=== PATIENT | male | born 1985 | race Caucasian/White ===

== ENCOUNTER 2016-12-06 17:59 | Emergency (ER) | payer OTHER ==
[~2016-12-06] VITALS: Ht 167.6 cm; Wt 143.8 kg
[~2016-12-06 17:59] MED LIST: BENZTROPINE ME0.5 MG PO; HYDROCODONE-AP1 EAC6 PO; IBUPROFEN 800800 MG PO; INDOMETHACIN 2525 MG PO; INDOMETHACIN 5050 MG PO; LISINOPRIL/HYDROCHLO; NAPROSYN500 MG PO; NOHOMEMEDICATIONS; NORCO 5-325 TA1 EACH PO; PREDNISONE 10 M10 MG PO; PROMETHAZINE-C120 ML PO; PROVENTIL HFA6.7 G1 INH; SEROQUEL 25 MG25 M1 PO; TRAZODONE HCL100 MG PO; ZOLOFT50 MG PO; ZPAK PO
[2016-12-06 19:42] LABS: HEMATOCRIT 43.7 % (42.0-52.0); HEMOGLOBIN 14.7 gm/dL (14.0-18.0); MCH 29.5 pg (26.0-34.0); MCHC 33.7 g/dL (28.0-37.0); MCV 87.6 fL (80.0-100.0); PLATELET COUNT 182 thou/uL (150-400); RBC 4.99 mil/uL (4.50-6.00); RDW 14.2 % (10.5-14.5); WBC 26.1 thou/uL (4.0-11.0)
[2016-12-06 19:43] LABS: URINE BILIRUBIN 1+ (Negative); URINE BLOOD 1+ (Negative); URINE COLOR YELLOW; URINE GLUCOSE-RANDOM* NEGATIVE (Negative); URINE KETONES TRACE (Negative); URINE NITRITE NEGATIVE (Negative); URINE PROTEIN (DIPSTICK) 1+ (Negative); URINE SPECIFIC GRAVITY 1.015 (1.003-1.035)
[2016-12-06 19:45] LABS: MANUAL DIFF YES
[2016-12-06 19:46] LABS: ICTOTEST (BILI CONFIRMATORY) Negative (Negative)
[2016-12-06 19:49] LABS: CREATININE 1.1 mg/dL (0.7-1.3)
[2016-12-06 19:54] LABS: ALBUMIN 3.8 g/dL (3.4-5.0); TOTAL BILIRUBIN 0.7 mg/dL (<0.1-1.0); TOTAL PROTEIN 7.5 g/dL (6.4-8.2)
[2016-12-06 20:01] LABS: BACTERIA 1-9 Few /HPF (None Seen); CASTS None Seen /LPF (None Seen); CRYSTALS None Seen /LPF (None Seen); SQUAMOUS 0-3 Few /LPF (0-3); URINE WBC 6-15 Few /HPF (0-5)
[2016-12-06 20:02] LABS: URINE RBC 0-2 Rare /HPF (0-2)
[2016-12-06 20:15] LABS: ABSOLUTE NEUTROPHILS 24.3 thou/uL (1.4-8.2); HYPOCHROMASIA SLIGHT; TOTAL CELL COUNT 100
[2016-12-06] MEDS ORDERED: INDOMETHACIN 2525 MG PO (21:28)
[2016-12-06] MEDS ORDERED: KEFLEX500 MG PO (21:28)
[2016-12-06] MEDS ORDERED: NORCO 5-325 TA1 EACH PO (21:28)
[2016-12-06 21:50] VITALS: BP 130/59
[2016-12-07] MEDS ORDERED: DESYREL300 MG PO (22:33)
== END 2016-12-06 21:54 | disposition home or self-care (01) ==
LOC: ER 17:59
PROVIDERS: Nurse Practitioner Family
DX: N12 Tubulo-interstitial nephritis, not specified as acute or chronic (principal); J40 Bronchitis, not specified as acute or chronic; D72.828 Other elevated white blood cell count; I10 Essential (primary) hypertension; Z96.642 Presence of left artificial hip joint; F17.210 Nicotine dependence, cigarettes, uncomplicated

== ENCOUNTER 2016-12-07 17:56 | Inpatient (IN) | payer OTHER ==
[~2016-12-07] VITALS: Ht 167.6 cm; Wt 143.8 kg
--- NOTE | ~2016-12-07 | 2DMMODE ---
[place] [address] [facility] [place] [address] 2 D/M-MODE ECHOCARDIOGRAM Name: BERNARDINO JACOBSEN Room #: 420-P [facility] IN .R.#: [id number] Admission: 12/07/16 Attend Phys: Ariela Yanez Discharge: Date of : 87 Date of Service: 12/08/16 1536 Report #: [id number] THIS REPORT FOR: //name// APPROVED REPORT Study performed: 12/08/2016 12:04:58 EXAM: Comprehensive 2D, Doppler, and color-flow Echocardiogram Patient Location: Bedside Room #: 420 Blood Pressure: 108/62 mmHg HR: 88 bpm Rhythm: NSR Other Information Study Quality: Adequate Technically limited study due to body habitus. Indications fever, IV drug abuse, cough, SOA. Hx HTN, HLP, tobacco abuse, morbid obesity. 2D Dimensions RVDd: 41.97 mm LVEF(%): 69.33 (>50%) IVSd: 11.16 (7-11mm) LVOT Diam: 22.01 (18-24mm) LVDd: 51.94 mm PWd: 10.64 (7-11mm) Ascending Ao: 31.58 (22-36mm) LVDs: 31.56 (25-40mm) Aortic Root: 35.25 mm Ashley's LVEF: 69.33 % Volumes Left Atrial Volume (Systole) Single Plane 4CH: 62.40 mL Single Plane 2CH: 58.41 mL LA ESV Index: 29.00 mL/m2 Aortic Valve AoV Peak Caio.: 1.89 m/s AO Peak Gr.: 14.32 mmHg LVOT Max P.33 mmHg LVOT Max V: 1.35 m/s ADELINA Vmax: 2.72 cm2 [facility] [place] [address] 2 D/M-MODE ECHOCARDIOGRAM Name: BERNARDINO JACOBSEN Room #: 420-[facility] IN ..#: [id number] Admission: 12/07/16 Attend Phys: Ariela Yanez Discharge: Date of : 87 Date of Service: 12/08/16 1536 Report #: [id number] Mitral Valve E/A Ratio: 1.2 MV Decel. Time: 234.53 ms MV E Max Caio.: 1.12 m/s MV A Caio.: 0.90 m/s MV PHT: 68.01 ms IVRT: 48.44 ms Pulmonary Valve PV Peak Caio.: 1.36 m/s PV Peak Gr.: 7.42 mmHg Pulmonary Vein P Vein S: 92.6 m/s P Vein A: 30.11 m/s P Vein D: 53.0 m/s P Vein A Dur.: 69.2 msec Tricuspid Valve TR Peak Caio.: 2.49 m/s RAP Estimate: 5.00 mmHg TR Peak Gr.: 24.82 mmHg RVSP: 30.00 mmHg Left Ventricle The left ventricle is normal size. There is normal LV segmental wall motion. There is normal left ventricular wall thickness. The left ventricular systolic function is normal. The left ventricular ejection fraction is within the normal range. LVEF is 60%. The left ventricular diastolic function is normal. Right Ventricle The right ventricle is normal size. The right ventricular systolic function is normal. Atria The left atrium size is normal. The right atrium size is normal. Aortic Valve The aortic valve is normal in structure. No aortic regurgitation is present. There is no aortic valvular stenosis. Mitral Valve The mitral valve is normal in structure. Trace mitral regurgitation. No evidence of mitral valve stenosis. Tricuspid Valve The tricuspid valve is normal in structure. Trace tricuspid regurgitation. [facility] [address] [place] [address] 2 D/M-MODE ECHOCARDIOGRAM Name: BERNARDINO JACOBSEN Room #: 420-P [facility] IN [facility]#: [id number] Admission: 12/07/16 Attend Phys: Ariela Yanez Discharge: Date of : 87 Date of Service: 12/08/16 1536 Report #: [id number] Pulmonic Valve Pulmonic valve is not well visualized. Great Vessels The aortic root is normal in size. IVC is normal in size and collapses >50% with inspiration. Pericardium There is no pericardial effusion. <Conclusion> The left ventricle is normal size. LVEF is 60%. The aortic valve is normal in structure. The mitral valve is normal in structure. Trace mitral regurgitation. The tricuspid valve is normal in structure. Trace tricuspid regurgitation. <ELECTRONICALLY SIGNED> By: Lamonte Garcia MD 12/08/16 1536 1536 1536 Lamonte Garcia MD /INF
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
[~2016-12-07 17:56] MED LIST changes: +KEFLEX500 MG PO
[2016-12-07 18:03] VITALS: BP 158/98
[2016-12-07 19:15] LABS: URINE BILIRUBIN NEGATIVE (Negative); URINE BLOOD 2+ (Negative); URINE COLOR YELLOW; URINE GLUCOSE-RANDOM* NEGATIVE (Negative); URINE KETONES NEGATIVE (Negative); URINE NITRITE NEGATIVE (Negative); URINE PROTEIN (DIPSTICK) 2+ (Negative); URINE SPECIFIC GRAVITY >= 1.030 (1.003-1.035)
[2016-12-07 19:21] LABS: BACTERIA None Seen /HPF (None Seen); CASTS None Seen /LPF (None Seen); CRYSTALS None Seen /LPF (None Seen); SQUAMOUS None Seen /LPF (0-3); URINE RBC 3-10 Few /HPF (0-2); URINE WBC 0-5 Rare /HPF (0-5)
[2016-12-07 20:01] LABS: HEMOGLOBIN 14.4 gm/dL (14.0-18.0); MCH 29.7 pg (26.0-34.0); MCHC 33.3 g/dL (28.0-37.0); MCV 89.2 fL (80.0-100.0); PLATELET COUNT 221 thou/uL (150-400); RBC 4.82 mil/uL (4.50-6.00); RDW 14.1 % (10.5-14.5); WBC 26.8 thou/uL (4.0-11.0)
[2016-12-07 20:02] LABS: MANUAL DIFF YES
[2016-12-07 20:09] LABS: CALCIUM 8.9 mg/dL (8.5-10.1); CREATININE 0.9 mg/dL (0.7-1.3); POTASSIUM 4.2 mmol/L (3.5-5.1)
[2016-12-07 20:15] LABS: ALBUMIN 3.6 g/dL (3.4-5.0); TOTAL BILIRUBIN 0.2 mg/dL (<0.1-1.0); TOTAL PROTEIN 7.4 g/dL (6.4-8.2)
[2016-12-07 20:21] LABS: ABSOLUTE NEUTROPHILS 22.8 thou/uL (1.4-8.2); TOTAL CELL COUNT 100
[2016-12-07] MEDS ORDERED: DESYREL300 MG PO (22:33)
[2016-12-08 04:00] VITALS: BP 124/58
[2016-12-08 06:22] LABS: ABSOLUTE NEUTROPHILS 13.1 thou/uL (1.4-8.2); BASOPHILS 0.3 % (0.0-2.0); EOSINOPHILS 0.6 % (0.0-3.0); HEMATOCRIT 38.4 % (42.0-52.0); HEMOGLOBIN 12.9 gm/dL (14.0-18.0); LYMPHOCYTES 17.3 % (24.0-44.0); MCHC 33.7 g/dL (28.0-37.0); MONOCYTES 8.9 % (1.0-8.0); PLATELET COUNT 193 thou/uL (150-400); POLYS 72.9 % (36.0-66.0); RBC 4.32 mil/uL (4.50-6.00); RDW 13.9 % (10.5-14.5)
[2016-12-08 06:25] LABS: MANUAL DIFF NO
[2016-12-08 06:31] LABS: CALCIUM 8.2 mg/dL (8.5-10.1); CREATININE 0.9 mg/dL (0.7-1.3); POTASSIUM 4.2 mmol/L (3.5-5.1)
[2016-12-08 07:30] VITALS: BP 108/62
[2016-12-08 15:48] VITALS: BP 133/65
[2016-12-08 17:12] LABS: HIV ANTIBODY Non Reactive (Non Reactive)
[2016-12-08 18:07] LABS: HEPATITIS C VIRUS AB <0.1 (0.0-0.9)
[2016-12-08 20:00] VITALS: BP 169/91
[2016-12-09 04:00] VITALS: BP 107/42
[2016-12-09 04:48] LABS: ABSOLUTE NEUTROPHILS 8.5 thou/uL (1.4-8.2); BASOPHILS 0.5 % (0.0-2.0); HEMATOCRIT 37.6 % (42.0-52.0); HEMOGLOBIN 12.8 gm/dL (14.0-18.0); LYMPHOCYTES 26.1 % (24.0-44.0); MCH 30.1 pg (26.0-34.0); MCV 88.6 fL (80.0-100.0); MONOCYTES 7.3 % (1.0-8.0); PLATELET COUNT 192 thou/uL (150-400); POLYS 64.1 % (36.0-66.0); RBC 4.25 mil/uL (4.50-6.00); RDW 14.4 % (10.5-14.5); WBC 13.2 thou/uL (4.0-11.0)
[2016-12-09 04:54] LABS: MANUAL DIFF NO
[2016-12-09 07:21] VITALS: BP 138/78
[2016-12-09 15:56] VITALS: BP 156/84
[2016-12-09 20:00] VITALS: BP 152/92
[2016-12-10 04:15] LABS: ABSOLUTE NEUTROPHILS 8.8 thou/uL (1.4-8.2); BASOPHILS 0.4 % (0.0-2.0); EOSINOPHILS 3.3 % (0.0-3.0); HEMATOCRIT 39.2 % (42.0-52.0); HEMOGLOBIN 13.3 gm/dL (14.0-18.0); LYMPHOCYTES 22.9 % (24.0-44.0); MCH 29.9 pg (26.0-34.0); MCHC 33.9 g/dL (28.0-37.0); MCV 88.3 fL (80.0-100.0); MONOCYTES 8.1 % (1.0-8.0); PLATELET COUNT 205 thou/uL (150-400); POLYS 65.3 % (36.0-66.0); RBC 4.44 mil/uL (4.50-6.00); RDW 14.3 % (10.5-14.5); WBC 13.4 thou/uL (4.0-11.0)
[2016-12-10 04:30] VITALS: BP 146/77
[2016-12-10 04:31] LABS: ALBUMIN 2.9 g/dL (3.4-5.0); CALCIUM 8.7 mg/dL (8.5-10.1); CREATININE 0.9 mg/dL (0.7-1.3); POTASSIUM 3.9 mmol/L (3.5-5.1); TOTAL BILIRUBIN 0.2 mg/dL (<0.1-1.0); TOTAL PROTEIN 6.4 g/dL (6.4-8.2)
[2016-12-10 04:56] LABS: MANUAL DIFF NO
[2016-12-10 07:28] VITALS: BP 153/83
[2016-12-10] MEDS ORDERED: LEVAQUIN 500 M500 M2 PO (10:24)
[2016-12-10] MEDS ORDERED: HYDROCODONE-AP1 EAC6 PO (10:24)
[2016-12-10 12:07] VITALS: BP 153/83
== END 2016-12-10 13:00 | disposition home or self-care (01) | DRG 690 ==
LOC: ER 17:56 → EROBS 19:50 → 4E 19:50
PROVIDERS: Hospitalist; Nurse Practitioner Acute Care; Nurse Practitioner Family
DX: N12 Tubulo-interstitial nephritis, not specified as acute or chronic (principal); J40 Bronchitis, not specified as acute or chronic; D72.829 Elevated white blood cell count, unspecified; R00.0 Tachycardia, unspecified; I10 Essential (primary) hypertension; F20.9 Schizophrenia, unspecified; F31.9 Bipolar disorder, unspecified; M54.9 Dorsalgia, unspecified; K59.00 Constipation, unspecified; M10.9 Gout, unspecified; F17.210 Nicotine dependence, cigarettes, uncomplicated; F12.90 Cannabis use, unspecified, uncomplicated; G47.00 Insomnia, unspecified; E78.00 Pure hypercholesterolemia, unspecified; F19.10 Other psychoactive substance abuse, uncomplicated; Z96.642 Presence of left artificial hip joint; Z87.81 Personal history of (healed) traumatic fracture; Z87.828 Personal history of other (healed) physical injury and trauma; Z79.899 Other long term (current) drug therapy; Z56.0 Unemployment, unspecified; Z82.5 Family history of asthma and other chronic lower respiratory diseases; Z71.6 Tobacco abuse counseling
CPT/HCPCS: 10183

== ENCOUNTER 2017-03-19 00:01 | Emergency (ER) | payer OTHER ==
[~2017-03-19] VITALS: Ht 165.1 cm; Wt 145.2 kg
[~2017-03-19 00:01] MED LIST changes: +DESYREL300 MG PO; +LEVAQUIN 500 M500 M2 PO
[2017-03-19] MEDS ORDERED: PROZAC10 MG PO (00:27)
[2017-03-19] MEDS ORDERED: UNKNOWN MED (00:27)
[2017-03-19] MEDS ORDERED: NORCO 5-325 TA1 EACH PO (02:00)
== END 2017-03-19 02:22 | disposition home or self-care (01) ==
LOC: ER 00:01
DX: S46.912A Strain of unspecified muscle, fascia and tendon at shoulder and upper arm level, left arm, initial encounter (principal); I10 Essential (primary) hypertension; E78.00 Pure hypercholesterolemia, unspecified; F17.210 Nicotine dependence, cigarettes, uncomplicated; Z96.642 Presence of left artificial hip joint; W18.39XA Other fall on same level, initial encounter; Y93.89 Activity, other specified; Y92.89 Other specified places as the place of occurrence of the external cause; Y99.8 Other external cause status

== ENCOUNTER 2017-04-25 16:17 | Emergency (ER) | payer OTHER ==
[~2017-04-25] VITALS: Ht 165.1 cm; Wt 149.7 kg
[~2017-04-25 16:17] MED LIST changes: +PROZAC10 MG PO; +UNKNOWN MED
[2017-04-25] MEDS ORDERED: VENTOLIN HFA 1818 GM INH (17:26)
[2017-04-25] MEDS ORDERED: PREDNISONE 20 M20 MG PO (17:28)
== END 2017-04-25 18:05 | disposition home or self-care (01) ==
LOC: ER 16:17
DX: J06.9 Acute upper respiratory infection, unspecified (principal); J98.01 Acute bronchospasm; Z72.0 Tobacco use; I10 Essential (primary) hypertension; E78.00 Pure hypercholesterolemia, unspecified; Z96.642 Presence of left artificial hip joint

== ENCOUNTER 2017-08-17 06:36 | Emergency (ER) | payer OTHER ==
[~2017-08-17] VITALS: Ht 172.7 cm; Wt 149.7 kg
[~2017-08-17 06:36] MED LIST changes: +FLEXERIL PO; +IBUPROFEN 800800 M1; +PREDNISONE 20 M20 MG PO; +ROBAXIN500 MG PO; +TRAMADOL 50 MG50 MG PO; +VENTOLIN HFA 1818 GM INH
[2017-08-17 07:29] LABS: ABSOLUTE NEUTROPHILS 5.9 thou/uL (1.4-8.2); EOSINOPHILS 2.9 % (0.0-3.0); HEMATOCRIT 43.9 % (42.0-52.0); HEMOGLOBIN 14.8 gm/dL (14.0-18.0); LYMPHOCYTES 21.9 % (24.0-44.0); MCH 29.4 pg (26.0-34.0); MCHC 33.6 g/dL (28.0-37.0); MCV 87.3 fL (80.0-100.0); MONOCYTES 8.7 % (1.0-8.0); PLATELET COUNT 219 thou/uL (150-400); POLYS 65.5 % (36.0-66.0); RBC 5.03 mil/uL (4.50-6.00); RDW 13.6 % (10.5-14.5)
[2017-08-17 07:36] LABS: CALCIUM 9.3 mg/dL (8.5-10.1); CREATININE 1.1 mg/dL (0.7-1.3)
[2017-08-17 11:05] LABS: URINE BILIRUBIN NEGATIVE (Negative); URINE BLOOD NEGATIVE (Negative); URINE CLARITY CLEAR; URINE COLOR YELLOW; URINE GLUCOSE-RANDOM* NEGATIVE (Negative); URINE KETONES NEGATIVE (Negative); URINE LEUKOCYTES-REFLEX NEGATIVE (Negative); URINE NITRITE-REFLEX NEGATIVE (Negative); URINE PROTEIN (DIPSTICK) NEGATIVE (Negative); URINE UROBILINOGEN 0.2 E.U./dl (0.2-1.0)
[2017-08-17] MEDS ORDERED: MIRALAX17 GM PO (11:40)
[2017-08-17] MEDS ORDERED: HYDROCORTISONE30 G9 RECTAL (11:40)
[2017-08-17] MEDS ORDERED: NORCO 7.5-3251 EACH PO (11:40)
[2017-08-17] MEDS ORDERED: SENNA-DOCUSATE1 EACH PO (11:40)
[2017-08-17] MEDS ORDERED: FLEXERIL PO (12:20)
[2017-08-17 12:35] VITALS: BP 131/76
== END 2017-08-17 12:36 | disposition home or self-care (01) ==
LOC: ER 06:36
PROVIDERS: Emergency Medicine
DX: K64.5 Perianal venous thrombosis (principal); M10.9 Gout, unspecified; I10 Essential (primary) hypertension; E78.00 Pure hypercholesterolemia, unspecified; F17.210 Nicotine dependence, cigarettes, uncomplicated; Z96.642 Presence of left artificial hip joint

== ENCOUNTER 2017-09-19 09:53 | Emergency (ER) | payer OTHER ==
[~2017-09-19] VITALS: Ht 165.1 cm; Wt 104.3 kg
[~2017-09-19 09:53] MED LIST changes: +HYDROCORTISONE30 G9 RECTAL; +MIRALAX17 GM PO; +NORCO 7.5-3251 EACH PO; +SENNA-DOCUSATE1 EACH PO
[2017-09-19 10:20] LABS: URINE BILIRUBIN NEGATIVE (Negative); URINE BLOOD TRACE (Negative); URINE CLARITY OTHER; URINE COLOR YELLOW; URINE GLUCOSE-RANDOM* NEGATIVE (Negative); URINE KETONES NEGATIVE (Negative); URINE LEUKOCYTES NEGATIVE (Negative); URINE NITRITE NEGATIVE (Negative); URINE PROTEIN (DIPSTICK) 2+ (Negative); URINE SPECIFIC GRAVITY >= 1.030 (1.005-1.035); URINE UROBILINOGEN 0.2 E.U./dl (0.2-1.0)
[2017-09-19 10:56] LABS: SQUAMOUS 0-3 Few /LPF (0-3)
[2017-09-19 10:57] LABS: CASTS None Seen /LPF (None Seen); CRYSTALS None Seen /LPF (None Seen)
[2017-09-19 10:59] LABS: URINE WBC 6-15 Few /HPF (0-5)
[2017-09-19 11:00] LABS: URINE RBC 3-10 Few /HPF (0-2)
[2017-09-19 11:09] LABS: BACTERIA 1-9 Few /HPF (None Seen)
[2017-09-19] MEDS ORDERED: IBUPROFEN 600600 M1 PO (11:26)
[2017-09-19] MEDS ORDERED: DOXYCYCLINE 10100 MG PO (11:26)
[2017-09-19 12:05] VITALS: BP 153/88
== END 2017-09-19 12:10 | disposition home or self-care (01) ==
LOC: ER 09:53
PROVIDERS: Nurse Practitioner
DX: N39.0 Urinary tract infection, site not specified (principal); R36.9 Urethral discharge, unspecified; I10 Essential (primary) hypertension; M10.9 Gout, unspecified; E78.00 Pure hypercholesterolemia, unspecified; F17.210 Nicotine dependence, cigarettes, uncomplicated; Z96.642 Presence of left artificial hip joint

== ENCOUNTER 2018-12-24 18:55 | Emergency (ER) | payer OTHER ==
[~2018-12-24] VITALS: Ht 172.7 cm; Wt 83.9 kg
[~2018-12-24 18:55] MED LIST changes: +DOXYCYCLINE 10100 MG PO; +IBUPROFEN 600600 M1 PO
[2018-12-24] MEDS ORDERED: POLYMYXIN B/TMP10 ML OPHTHALMIC (20:26)
[2018-12-24 21:04] VITALS: BP 122/75
== END 2018-12-24 21:07 | disposition home or self-care (01) ==
LOC: ER 18:55
DX: H10.9 Unspecified conjunctivitis (principal); I10 Essential (primary) hypertension; E78.00 Pure hypercholesterolemia, unspecified; M10.9 Gout, unspecified; Z96.642 Presence of left artificial hip joint; F17.210 Nicotine dependence, cigarettes, uncomplicated

== ENCOUNTER 2019-02-08 23:54 | Emergency (ER) | payer OTHER ==
[~2019-02-08] VITALS: Ht 165.1 cm; Wt 99.8 kg
[~2019-02-08 23:54] MED LIST changes: +POLYMYXIN B/TMP10 ML OPHTHALMIC
[2019-02-08 23:55] VITALS: BP 139/74
== END 2019-02-09 00:40 | disposition home or self-care (01) ==
LOC: ER 23:54
DX: M54.9 Dorsalgia, unspecified (principal); F17.210 Nicotine dependence, cigarettes, uncomplicated; I10 Essential (primary) hypertension; M10.9 Gout, unspecified; E78.00 Pure hypercholesterolemia, unspecified; Z96.642 Presence of left artificial hip joint; W01.0XXA Fall on same level from slipping, tripping and stumbling without subsequent striking against object, initial encounter; Y92.89 Other specified places as the place of occurrence of the external cause; Y93.89 Activity, other specified; Y99.8 Other external cause status

== ENCOUNTER 2019-05-20 07:54 | Emergency (ER) | payer OTHER ==
[~2019-05-20] VITALS: Ht 165.1 cm; Wt 90.7 kg
[2019-05-20 08:39] LABS: HEMOGLOBIN 16.2 gm/dL (14.0-18.0); MCH 29.5 pg (26.0-34.0); MCHC 33.7 g/dL (28.0-37.0); MCV 87.6 fL (80.0-100.0); RBC 5.48 mil/uL (4.50-6.00); RDW 13.6 % (10.5-14.5); WBC 12.8 thou/uL (4.0-11.0)
[2019-05-20 08:53] LABS: ANION GAP 10 mmol/L (7-16); BUN 21 mg/dL (7-18); CALCIUM 9.7 mg/dL (8.5-10.1); CHLORIDE 104 mmol/L (98-107); CO2 27 mmol/L (21-32); GLUCOSE 95 mg/dL (74-106); POTASSIUM 3.8 mmol/L (3.5-5.1); SODIUM 141 mmol/L (136-145)
[2019-05-20 09:02] LABS: ALBUMIN 4.3 g/dL (3.4-5.0); SGOT 10 U/L (15-37); SGPT 19 U/L (30-65); TOTAL BILIRUBIN 0.6 mg/dL (<0.1-1.0); TOTAL PROTEIN 8.3 g/dL (6.4-8.2); TROPONIN-I <0.06 ng/mL (<0.06)
[2019-05-20 09:33] LABS: URINE BILIRUBIN NEGATIVE (Negative); URINE BLOOD TRACE (Negative); URINE CLARITY CLEAR; URINE COLOR YELLOW; URINE GLUCOSE-RANDOM* NEGATIVE (Negative); URINE KETONES NEGATIVE (Negative); URINE LEUKOCYTES-REFLEX NEGATIVE (Negative); URINE NITRITE-REFLEX NEGATIVE (Negative); URINE PROTEIN (DIPSTICK) 1+ (Negative); URINE SPECIFIC GRAVITY >= 1.030 (1.005-1.035); URINE UROBILINOGEN 0.2 E.U./dl (0.2-1.0)
[2019-05-20 09:51] LABS: AMP/METHAMP POSITIVE (Negative); BARBITURATES Negative (Negative); BENZODIAZEPINES Negative (Negative); COCAINE Negative (Negative); METHADONE Negative (Negative); OPIATES POSITIVE (Negative); PCP Negative (Negative)
[2019-05-20 09:55] LABS: CASTS None Seen /LPF (None Seen); SQUAMOUS None Seen /LPF (0-3); URINE RBC 3-10 Few /HPF (0-2)
[2019-05-20 09:56] LABS: AMORPHOUS URATES Moderate /LPF (None Seen); BACTERIA-REFLEX 1-9 Few /HPF (None Seen); URINE WBC-REFLEX 0-5 Rare /HPF (0-5)
[2019-05-20 12:56] VITALS: BP 178/82
--- NOTE | 2019-05-20 13:57 | EKG ---
[address] [address] ELECTROCARDIOGRAM REPORT Name: BERNARDINO JACOBSEN [id number] Admission: 05/20/19 Attend Phys: Discharge: 05/20/19 Date of : 87 Report #: [id number] THIS REPORT FOR: //name// [facility] ED Test Date: 2019-05-20 Test Time: 08:41:57 Pat Name: BERNARDINO JACOBSEN Department: Room: Gender: M Knockout Man: [facility] : 1985 Requested By: Bashir Neville Order Number: [id number] MD: Alexandru Gayle Measurements Intervals [place] Rate: 76 P: 32 SC: 170 QRS: 87 QRSD: 92 T: 28 QT: 346 QTc: 390 Interpretive Statements Sinus rhythm with PACs No previous ECG available for comparison Electronically Signed On 05-20-2019 13:57:42 CDT by Alexandru Gayle [email or web address] <ELECTRONICALLY SIGNED> By: Alexandru Gayle MD 05/20/19 1357 0841 0841 Alexandru Gayle MD /ARMIN
== END 2019-05-20 12:58 | disposition home or self-care (01) ==
LOC: ER 07:54
PROVIDERS: Emergency Medicine
DX: T50.995A Adverse effect of other drugs, medicaments and biological substances, initial encounter (principal); F20.9 Schizophrenia, unspecified; F12.10 Cannabis abuse, uncomplicated; F15.10 Other stimulant abuse, uncomplicated; F41.9 Anxiety disorder, unspecified; I10 Essential (primary) hypertension; E78.00 Pure hypercholesterolemia, unspecified; M10.9 Gout, unspecified; F17.210 Nicotine dependence, cigarettes, uncomplicated; Z96.642 Presence of left artificial hip joint; Y92.89 Other specified places as the place of occurrence of the external cause

== ENCOUNTER 2019-08-14 07:00 | Emergency (ER) | payer OTHER ==
[~2019-08-14] VITALS: Ht 165.1 cm; Wt 90.7 kg
[2019-08-14 07:01] VITALS: BP 156/93
[2019-08-14] MEDS ORDERED: INDOMETHACIN 2525 MG PO (07:24)
== END 2019-08-14 07:35 | disposition home or self-care (01) ==
LOC: ER 07:00
DX: M10.9 Gout, unspecified (principal); I10 Essential (primary) hypertension; E78.00 Pure hypercholesterolemia, unspecified; F17.210 Nicotine dependence, cigarettes, uncomplicated; Z96.642 Presence of left artificial hip joint

== ENCOUNTER 2019-11-07 23:29 | Emergency (ER) | payer OTHER ==
[~2019-11-07] VITALS: Ht 170.2 cm; Wt 90.7 kg
[2019-11-07 23:32] VITALS: BP 135/90
[2019-11-08] MEDS ORDERED: BACTRIM DS TAB1 EAC1 PO (00:29)
[2019-11-08] MEDS ORDERED: KEFLEX500 M1 PO (00:29)
== END 2019-11-08 00:47 | disposition home or self-care (01) ==
LOC: ER 23:29
DX: L02.416 Cutaneous abscess of left lower limb (principal); L03.116 Cellulitis of left lower limb; I10 Essential (primary) hypertension; E78.00 Pure hypercholesterolemia, unspecified; M10.9 Gout, unspecified; F17.210 Nicotine dependence, cigarettes, uncomplicated; Z96.642 Presence of left artificial hip joint